=== PATIENT | female | born 1970 | race African-American/Black ===

== ENCOUNTER 2017-10-07 13:18 | Emergency (ER) | payer OTHER ==
[~2017-10-07] VITALS: Ht 154.9 cm; Wt 68.0 kg
== END 2017-10-07 14:23 | disposition home or self-care (01) ==
LOC: ED 13:18
DX: F07.81 Postconcussional syndrome (principal); F32.9 Major depressive disorder, single episode, unspecified
CPT/HCPCS: 99282